=== PATIENT | male | born 1930 | race Caucasian/White ===

== ENCOUNTER → 2016-10-03 | Outpatient (CLI) | payer MEDICARE, MEDICAID ==
[~2016-10-03] MED LIST: AC500T PO; ACET325T38 PO; ACET650S13 RC; ALBU0.8322 IH; AMLO5TAB2 PO; CALC-196 PO; CALC-694 PO; CHOL10003 PO; CIPR500T78 PO; DCS100C PO; DEXT15LI5 PO; GUAI100L34 PO; IBUP-15 PO; IBUP-792; KCL10CCR PO; LORA10TA7 PO; LORA1TAB PO; MAG355OR17 PO; MAGN-47 PO; MULT-28 PO; MULT-608 PO; MULT-68 PO; POLY17PO23 PO; PROM25SU10 RC; SERT50TA PO; [UNRECOGNIZED DRUG - CODE]
--- OUTSIDE RECORDS SUMMARY | 2016-10-03 21:06 | XMS REPORT | Continuity of Care Document ---
Author Author [facility] Organization [facility] Address Unknown Phone Unavailable Allergies Active Description Code Type Severity Reaction Onset Reported/Identified Relationship to Patient Clinical Status Yes ENVIRONMENTAL ENVIRONMENTAL Mild N/A 03/08/2009 Yes Sulfa (Sulfonamide Antibiotics) [id number] Drug Allergy Unknown N/A 06/16/2011 Medications Problems Date Dx Coded Attending Type Code Diagnosis Diagnosed By 02/09/2015 KIKI LITTLEJOHN DO Ot 599.0 02/15/2015 KIKI LITTLEJOHN DO Ot 599.0 Procedures Results Encounters ACCT No. Visit Date/Time Discharge Status Pt. Type Provider Facility Loc./Unit Complaint [id number] 01/15/2015 14:58:00 2014 23:59:59 CLS Outpatient KIKI LITTLEJOHN DO [facility] [id number] 09/05/2013 10:18:00 2013 23:59:59 CLS Outpatient [id number] 08/26/2013 09:31:00 2013 14:00:00 DIS Inpatient [id number] 08/23/2013 14:27:00 2013 23:59:59 CLS Outpatient [id number] 03/08/2013 20:57:00 2012 16:05:00 DIS Inpatient [id number] 12/21/2012 10:34:00 2012 23:59:59 CLS Outpatient [id number] 10/03/2016 21:02:00 ACT Outpatient KIKI LITTLEJOHN DO [facility]
== END ==
PROVIDERS: ATTEND Internal Medicine
DX: R19.5 Other fecal abnormalities (principal)
CPT/HCPCS: 82274